=== PATIENT | female | born 1965 | race Caucasian/White ===

== ENCOUNTER 2024-12-11 15:09 | Observation (INO) ==
[2024-12-11] MEDS ORDERED: IOPAMIDOL 100 ML BOTTLE IV ONE (15:10)
[2024-12-11 15:57] LABS: Basophils # (Auto) 0.03 K/mcL (0.00-0.30); Basophils % (Auto) 0.2 % (0.0-2.0); Eosinophils # (Auto) 0.04 K/mcL (0.00-0.70); Eosinophils % (Auto) 0.2 % (0.0-7.0); Hematocrit 45.4 % (34.1-44.9); Hemoglobin 14.5 g/dL (11.2-15.7); Lymphocytes # (Auto) 1.87 K/mcL (1.50-4.80); Lymphocytes % (Auto) 10.8 % (15.5-49.0); Mean Corpuscular HGB Conc 31.9 g/dL (31.0-36.0); Monocytes # (Auto) 1.42 K/mcL (0.10-0.90); Monocytes % (Auto) 8.2 % (1.0-12.0); Neutrophils % (Auto) 79.9 % (38.0-78.0); Platelet Count 381 K/mcL (140-440); RBC 5.07 M/mcL (3.59-5.38); WBC 17.4 K/mcL (4.5-11.0)
[2024-12-11] MEDS: ONDANSETRON 4 MG/2 ML VIAL IV ONE ×2 (16:12→20:00)
[2024-12-11 16:38] LABS: Bilirubin,Urine Negative (Negative); Color,Urine Red; Glucose,Urine (UA) Negative (Negative); Ketones,Urine 40 mg/dL (Negative); Leukocyte Esterase,Urine Small /uL (Negative); PH,Urine 8.5 (5.0-9.0); Protein,Urine 30 mg/dL (Negative); Specific Gravity,Urine 1.020 (1.000-1.035); Urobilinogen,Urine Normal
[2024-12-11 16:53] LABS: ALT/SGPT 33 U/L (<40); AST/SGOT 28 U/L (<32); Albumin 3.7 gm/dL (3.2-5.2); Albumin/Globulin Ratio 1.3 (1.0-2.3); Alkaline Phosphatase 145 U/L (39-117); Anion Gap 12.0 (8.0-16.0); Bilirubin,Total 0.5 mg/dL (0.1-1.0); Blood Urea Nitrogen 13 mg/dL (6-20); Calcium 9.4 mg/dL (8.6-10.4); Carbon Dioxide 27 mmol/L (22-30); Chloride 101 mmol/L (96-108); Globulin 2.9 gm/dL (2.2-3.7); Glucose 120 mg/dL (70-105); Potassium 3.7 mmol/L (3.3-5.1); Sodium 140 mmol/L (133-145)
[2024-12-11] MEDS: LORazepam 2 MG/ML VIAL IV ONE (17:35)
[2024-12-11] MEDS: diphenhydrAMINE 50 MG/ML VIAL IV ONE (18:34)
[2024-12-11] MEDS: METOCLOPRAMIDE 10 MG/2 ML VIAL IV ONE (18:34)
[2024-12-11 19:55] LABS: RBC Morphology NORMAL (Normal)
[2024-12-11] MEDS ORDERED: SENNOSIDES 1 TABLET PO PRN (21:31)
[2024-12-11] MEDS ORDERED: METOPROLOL TARTRATE 5 MG/5 ML VIAL IV PRN (21:31)
[2024-12-11] MEDS ORDERED: POTASSIUM CHLORIDE 20 MEQ TABLET PO PRN ×2 (21:31)
[2024-12-11] MEDS ORDERED: ACETAMINOPHEN 325 MG TABLET PO PRN (21:31)
[2024-12-11] MEDS ORDERED: POTASSIUM CHLORIDE 40 MEQ in DEXTROSE 5% IN WATER 500 ML IV PRN (21:31)
[2024-12-11] MEDS ORDERED: POLYETHYLENE GLYCOL 3350 17 GM PACKET PO PRN (21:31)
[2024-12-11] MEDS ORDERED: IPRATROPIUM/ALBUTEROL 3 ML AMPUL.NEB NEB PRN (21:31)
[2024-12-11] MEDS ORDERED: MAGNESIUM SULFATE 2 GM/50 ML BAG IV PRN (21:31)
[2024-12-11] MEDS: DOCUSATE SODIUM 100 MG CAPSULE PO SCH (22:00)
[2024-12-11] MEDS: FLECAINIDE 50 MG TABLET PO ONE (22:10)
[2024-12-11] MEDS: FLECAINIDE 50 MG TABLET PO SCH (22:16)
[2024-12-11] MEDS: METOCLOPRAMIDE 10 MG/2 ML VIAL IV PRN (22:17)
[2024-12-11] MEDS: 0.9 % SODIUM CHLORIDE 10 ML SYRINGE IV SCH (22:17)
[2024-12-11] MEDS: DIAZEPAM 10 MG/2 ML SYRINGE IV ONE (22:26)
[2024-12-11] MEDS: 0.9 % SODIUM CHLORIDE 1,000 ML IV SCH (22:27)
[2024-12-11] MEDS: EZETIMIBE 10 MG TABLET PO ONE (23:19)
[2024-12-11] MEDS: ATORVASTATIN 10 MG TABLET PO ONE (23:20)
[2024-12-12] MEDS: FLECAINIDE 100 MG TABLET PO SCH (05:28)
[2024-12-12 06:26] LABS: Basophils # (Auto) 0.02 K/mcL (0.00-0.30); Basophils % (Auto) 0.2 % (0.0-2.0); Eosinophils # (Auto) 0.14 K/mcL (0.00-0.70); Eosinophils % (Auto) 1.1 % (0.0-7.0); Hematocrit 41.8 % (34.1-44.9); Hemoglobin 13.3 g/dL (11.2-15.7); Lymphocytes # (Auto) 2.89 K/mcL (1.50-4.80); Lymphocytes % (Auto) 22.8 % (15.5-49.0); Mean Corpuscular HGB Conc 31.8 g/dL (31.0-36.0); Monocytes # (Auto) 1.38 K/mcL (0.10-0.90); Monocytes % (Auto) 10.9 % (1.0-12.0); Neutrophils % (Auto) 64.2 % (38.0-78.0); Platelet Count 353 K/mcL (140-440); RBC 4.60 M/mcL (3.59-5.38); WBC 12.7 K/mcL (4.5-11.0)
[2024-12-12 07:50] LABS: ALT/SGPT 24 U/L (<40); AST/SGOT 19 U/L (<32); Albumin 3.3 gm/dL (3.2-5.2); Albumin/Globulin Ratio 1.4 (1.0-2.3); Alkaline Phosphatase 122 U/L (39-117); Anion Gap 11.0 (8.0-16.0); Bilirubin,Direct 0.2 mg/dL (<0.3); Bilirubin,Total 0.4 mg/dL (0.1-1.0); Blood Urea Nitrogen 13 mg/dL (6-20); Calcium 8.4 mg/dL (8.6-10.4); Carbon Dioxide 25 mmol/L (22-30); Chloride 104 mmol/L (96-108); Globulin 2.4 gm/dL (2.2-3.7); Glucose 95 mg/dL (70-105); Phosphorous 2.7 mg/dL (2.5-4.5); Potassium 3.6 mmol/L (3.3-5.1); Sodium 140 mmol/L (133-145); Triglycerides 105 mg/dL (<150); Uric Acid 4.1 mg/dL (2.5-8.0)
[2024-12-12] MEDS: DIAZEPAM 10 MG/2 ML SYRINGE IV SCH (09:10)
[2024-12-12] MEDS: ONDANSETRON 4 MG/2 ML VIAL IV PRN (12:19)
[2024-12-12] MEDS: DIAZEPAM 10 MG/2 ML SYRINGE IV PRN (14:27)
[2024-12-12] MEDS: ATORVASTATIN 10 MG TABLET PO SCH (20:23)
[2024-12-12] MEDS: EZETIMIBE 10 MG TABLET PO SCH (20:24)
[2024-12-13 06:33] LABS: Basophils # (Auto) 0.04 K/mcL (0.00-0.30); Basophils % (Auto) 0.4 % (0.0-2.0); Eosinophils # (Auto) 0.23 K/mcL (0.00-0.70); Eosinophils % (Auto) 2.1 % (0.0-7.0); Hematocrit 40.2 % (34.1-44.9); Hemoglobin 12.9 g/dL (11.2-15.7); Lymphocytes # (Auto) 2.51 K/mcL (1.50-4.80); Lymphocytes % (Auto) 22.8 % (15.5-49.0); Mean Corpuscular HGB Conc 32.1 g/dL (31.0-36.0); Monocytes # (Auto) 1.17 K/mcL (0.10-0.90); Monocytes % (Auto) 10.6 % (1.0-12.0); Neutrophils % (Auto) 63.0 % (38.0-78.0); Platelet Count 339 K/mcL (140-440); RBC 4.44 M/mcL (3.59-5.38); WBC 11.0 K/mcL (4.5-11.0)
[2024-12-13 07:00] LABS: Anion Gap 9.0 (8.0-16.0); Blood Urea Nitrogen 8 mg/dL (6-20); Calcium 8.3 mg/dL (8.6-10.4); Carbon Dioxide 25 mmol/L (22-30); Chloride 103 mmol/L (96-108); Glucose 88 mg/dL (70-105); Potassium 3.4 mmol/L (3.3-5.1); Sodium 137 mmol/L (133-145)
[2024-12-13 07:04] VITALS: O2SAT 96
[2024-12-13 10:59] VITALS: TEMP 98.4
== END 2024-12-13 11:47 | disposition home or self-care (01) ==
LOC: MEDSUR 15:09 → ED 15:09 → MEDSUR 21:32
PROVIDERS: ADMIT Internal Medicine; ATTEND Internal Medicine